=== PATIENT | male | born 1990 ===

== ENCOUNTER 2019-05-28 11:32 | Emergency (ER) | payer SELFPAY ==
[2019-05-28 11:37] VITALS: TEMP 98; BMI 25.7
[2019-05-28] MEDS ORDERED: EPINEPHrine 1:1,000 0.3 MG/0.3 ML SYR IM ONE (11:41)
[2019-05-28] MEDS ORDERED: EPINEPHrine/PF 1 MG/1 ML (1:1,000) AMPULE ONE (11:42)
[2019-05-28] MEDS ORDERED: EPINEPHrine 1:1,000 - 30 MG/30 ML VIAL IM ONE (11:44)
[2019-05-28] MEDS ORDERED: diphenhydrAMINE HCL 25 MG CAPSULE (FP) PO ONE ×2 (11:46→11:48)
--- NOTE | 2019-05-28 12:16 | PDOC ---
History of Present Illness - General Chief Complaint: Allergic Reaction Stated Complaint: ALLERGIC REACTION Time Seen by Provider: 05/28/19 12:05 - History of Present Illness Initial Comments: 05/28/19 12:49 HPI: 28 y/o with hx of allergies presenting with allergic reaction. He states around 11:30am he was driving when he suddenly felt flushed, facial swelling, pruritis and SOB. He pulled over and called his brother and subsequently came to the ED. While here he was having increasing SOB and was given an EpiPen and benadryl. Currently, patient reports his symptoms have significantly improved. He denies current LH, YANES, chest pain, abd pain, n/v, diaphoresis. PMHx: as noted above ROS: as noted SHx: 1ppd smoking; no alcohol use; no rec drugs Allergies: NKDA ROS: GENERAL/CONSTITUTIONAL: No fever or chills. No weakness. HEAD, EYES, EARS, NOSE AND THROAT: No change in vision. No ear pain or discharge. No sore throat. CARDIOVASCULAR: +shortness of breath RESPIRATORY: No cough, wheezing, or hemoptysis. GASTROINTESTINAL: No nausea, vomiting, diarrhea or constipation. GENITOURINARY: No dysuria, frequency, or change in urination. MUSCULOSKELETAL: No joint or muscle swelling or pain. No neck or back pain. SKIN: No rash NEUROLOGIC: No headache, vertigo, loss of consciousness, or change in strength/ sensation. ENDOCRINE: No increased thirst. No abnormal weight change HEMATOLOGIC/LYMPHATIC: No anemia, easy bleeding, or history of blood clots. ALLERGIC/IMMUNOLOGIC: No hives or skin allergy. PE: GENERAL: Awake, alert, and fully oriented, no acute distress HEAD: No signs of trauma, normocephalic, atraumatic EYES: EOMI, sclera anicteric, conjunctiva clear ENT: Auricles normal inspection, hearing grossly normal, nares patent, oropharynx clear without exudates. Moist mucosa NECK: Normal ROM, no lymphadenopathy LUNGS: No increased work of breathing, symmetrical chest rise, clear to auscultation bilaterally, no wheezes, crackles or rhonchi HEART: tachycardic and regular rhythm, normal S1 and S2, no murmurs, peripheral pulses 2+ and equal bilaterally. ABDOMEN: Soft, nondistended, nontender, normoactive bowel sounds. No guarding, no rebound. No masses. No CVAT EXTREMITIES: Normal inspection, Normal range of motion, no edema. No clubbing or cyanosis. NEUROLOGICAL: Cranial nerves II through XII grossly intact. Normal speech, normal gait, no focal sensorimotor deficits SKIN: Warm, Dry, normal turgor, no rashes or lesions noted Past History - Past Medical History Allergies/Adverse Reactions: Allergies Allergy/AdvReac Type Severity Reaction Status Date / Time NSAIDS (Non-Steroidal Allergy Verified 05/28/19 11:37 Anti-Inflamma Home Medications: Ambulatory Orders Epinephrine [Epipen 2-Ap] 0.3 mg IJ ASDIR #1 kit 05/28/19 COPD: No - Immunization History Immunization Up to Date: No - Psycho Social/Smoking Cessation Hx Smoking History: Unknown if ever smoked Have you smoked in the past 12 months: No Information on smoking cessation initiated: No Hx Alcohol Use: No Drug/Substance Use Hx: No *Physical Exam - Vital Signs Last Vital Signs Temp Pulse Resp BP Pulse Ox 98.0 F 115 H 20 126/73 94 L 05/28/19 11:34 05/28/19 11:34 05/28/19 11:34 05/28/19 11:34 05/28/19 11:34 ED Treatment Course - Medications Given in the ED: ED Medications Discontinued Medications Generic Name Dose Route Start Last Admin Trade Name Emerson PRN Reason Stop Dose Admin Diphenhydramine HCl 50 mg 05/28/19 11:46 05/28/19 11:59 Benadryl - PO 05/28/19 11:47 50 mg ONCE ONE Administration Epinephrine 0.3 mg 05/28/19 11:41 05/28/19 11:59 Epipen 0.3mg - IM 05/28/19 11:42 0.3 mg ONCE ONE Administration Medical Decision Making - Medical Decision Making 05/28/19 13:09 28 y/o with hx of allergies presenting with allergic reaction including facial swelling, pruritis, SOB. HR 115, AF. 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 and strict return pcxns patient comfortable with plan and all questions were answered Discharge - Discharge Information Problems reviewed: Yes Clinical Impression/Diagnosis: Allergic reaction Condition: Improved Disposition: HOME - Additional Discharge Information Prescriptions: Epinephrine [Epipen 2-Ap] 0.3 mg IJ ASDIR #1 kit - Follow up/Referral Referrals: Cheo Crain MD [Staff Physician] - Shamar Phillips MD [Staff Physician] - Bren Bruce MD [Staff Physician] - Maite Jurado MD [Staff Physician] - - Patient Discharge Instructions Patient Printed Discharge Instructions: DI for Anaphylaxis Additional Instructions: Return to the ED if there is concern for new or worsening symptoms. You may followup with any of the allergists that have been included in your discharge papers A script for a 2pack epipen has been sent to your pharmacy. Follow instructions : if you feel any shortness of breath during an episode, choking sensation, airway closing, take epipen and come to the ED - Post Discharge Activity
--- NOTE | 2019-05-28 12:59 | PDOC ---
Attending Attestation - Resident Resident Name: Mony Dodson - ED Attending Attestation I have performed the following: I have examined & evaluated the patient, The case was reviewed & discussed with the resident, I agree w/resident's findings & plan, Exceptions are as noted - HPI HPI: 05/28/19 15:22 28 years old past medical history notable for allergic reaction/mild anaphylaxis presents to the emergency department with facial swelling difficulty breathing and itching upon arrival to the emergency department patient was given epinephrine and Benadryl - Physicial Exam PE: 05/28/19 15:22 Vitals: Triage Vital signs reviewed General Appearance: No acute distress, well nourished well developed, Head: Atraumatic, mild facial swelling, mild redness Throat: No stridor Neck: Supple; no Nucal rigidity Chest Wall: Nontender Cardiac: Regular rate and rhythym, no murmurs, no rubs, no gallops, Lungs: Clear to auscultation bilateral, good air movement bilaterally, Abdomen: Soft, non distended, normal bowel sounds, non tender to palpation Extremities: Full range of motion to all extremities, no cyanosis, clubbing, or edema Skin: Warm and dry, no rashes or lesions, no rash, no petechiae Psych: Normal mood, normal affect - Medical Decision Making 05/28/19 15:23 History examination consistent with allergic reaction/mild anaphylaxis patient has had approximately one episode every 2 to 3 months Patient received epinephrine and Benadryl upon arrival to the emergency department he is currently feeling much better Patient observed in the emergency department for 3 hours symptoms have completely improved there is been no rebound reaction 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 05/28/19 17:06
[2019-05-28 15:17] VITALS: BP 122/68; PULSE 99
== END 2019-05-28 15:18 | disposition home or self-care (01) ==
LOC: JER 11:32
PROC: 3E023GC Introduction of Other Therapeutic Substance into Muscle, Percutaneous Approach (ICD-10-PCS; principal; 2019-05-28)
DX: T78.40XA Allergy, unspecified, initial encounter (principal); Z88.8 Allergy status to other drugs, medicaments and biological substances
CPT/HCPCS: 71046-TC-FY; 99282-25